=== PATIENT | female | born 1980 | race Caucasian/White ===

== ENCOUNTER 2017-01-01 12:00 | Observation (INO) | payer OTHER ==
[~2017-01-01] VITALS: Ht 165.1 cm; Wt 90.7 kg
--- NOTE | ~2017-01-01 | H ---
[facility] [address] HISTORY AND PHYSICAL Name: ROSEANNE LY [id number] Admission: 01/01/17 Attend Phys: Alexey Montgomery MD Discharge: Date of : 80 Report #: [id number] THIS REPORT FOR: //name// CC: Gunner Can [facility] physician/PCP DATE OF SERVICE: 01/01/2017 DATE OF SERVICE: 01/01/2017 REASON FOR PRESENTATION: Shortness of breath. HISTORY OF PRESENT ILLNESS: The patient is a 36-year-old who had been having some upper respiratory tract symptoms, fever, night sweats, cough over the last few days. The temperature was documented to be around 103. She visited with an Urgent Care place where she had some tachycardia and low blood pressure and was advised to come to the emergency room. No previous similar episodes. She is not known to have any previous medical problems. On presentation to the emergency room, she was found to have left-sided pneumonitis and was admitted for further evaluation and management. PAST MEDICAL HISTORY: None. SURGICAL HISTORY: Surgery for a broken arm. SOCIAL HISTORY: No drug or alcohol abuse. Nonsmoker. She works from home. FAMILY HISTORY: Hypertension. MEDICATIONS: None. REVIEW OF SYSTEMS: GENERAL: Significant for fever. CARDIOVASCULAR: No chest pain. PULMONARY: Significant for cough, shortness of breath. GASTROINTESTINAL: No nausea or vomiting. GENITOURINARY: No frequency or urgency. MUSCULOSKELETAL: Occasional myalgias. SKIN: No rash or ulcerations. NEUROLOGICAL: Significant for dizziness. No syncope. LABORATORY VALUES: Reviewed. PHYSICAL EXAMINATION: VITAL SIGNS: Temperature 36.8, blood pressure 133/98. Pulse rate was slightly [facility] [address] [place] [address] HISTORY AND PHYSICAL Name: ROSEANNE LY [facility] [id number] Admission: 01/01/17 Attend Phys: Alexey Montgomery MD Discharge: Date of : 80 Report #: [id number] elevated at 111. HEAD AND NECK: No jugular venous distention, no bruit, no thyromegaly. CHEST: Decreased air entry on the left side. CARDIOVASCULAR: Tachycardic with no rub detected. ABDOMEN: Soft, nontender. LOWER EXTREMITIES: No edema. LABORATORY VALUES: Reviewed, essentially unremarkable. RADIOLOGIC IMAGING: Chest x-ray reviewed, left-sided pneumonia. ASSESSMENT, IMPRESSION, PLAN: 1. Community-acquired pneumonia. 2. Leukocytosis due to the above. 3. Admission. 4. IV fluids. 5. Cultures obtained. 6. Appropriate antibiotic. 7. Observe vital signs. 8. Routine Tylenol care for her fever. 7. GI prophylaxis. 8. She is a very low risk for deep venous thrombosis and a pulmonary embolism and we will not initiate any of those treatment other than mobilizations. <ELECTRONICALLY SIGNED> By: Gunner Can MD 01/02/17 1141 [id number] Gunner Can MD /tamanna
[2017-01-01 12:11] VITALS: BP 133/98
[2017-01-01 14:39] LABS: HEMATOCRIT 39.8 % (37.0-47.0); HEMOGLOBIN 14.2 gm/dL (12.0-15.0); MCH 31.9 pg (26.0-34.0); MCHC 35.7 g/dL (28.0-37.0); MCV 89.4 fL (80.0-100.0); PLATELET COUNT 129 thou/uL (150-400); RBC 4.45 mil/uL (4.20-5.00); RDW 12.1 % (10.5-14.5); WBC 6.1 thou/uL (4.0-11.0)
[2017-01-01 14:40] LABS: MANUAL DIFF YES
[2017-01-01 14:53] LABS: ANION GAP 8 mmol/L (7-16); BUN 6 mg/dL (7-18); CALCIUM 8.6 mg/dL (8.5-10.1); CHLORIDE 102 mmol/L (98-107); CO2 27 mmol/L (21-32); CREATININE 0.8 mg/dL (0.6-1.0); GLUCOSE 101 mg/dL (74-106); POTASSIUM 3.6 mmol/L (3.5-5.1); SODIUM 137 mmol/L (136-145)
[2017-01-01 14:59] LABS: ALKALINE PHOSPHATASE 48 U/L (46-116); DIRECT BILIRUBIN < 0.1 mg/dL (<0.1-0.3); SGOT 29 U/L (15-37); SGPT 32 U/L (30-65); TOTAL BILIRUBIN 0.4 mg/dL (<0.1-1.0); TOTAL PROTEIN 7.3 g/dL (6.4-8.2)
[2017-01-01 15:01] LABS: TOTAL CELL COUNT 100
[2017-01-01 15:51] LABS: URINE BILIRUBIN NEGATIVE (Negative); URINE BLOOD 3+ (Negative); URINE COLOR YELLOW; URINE GLUCOSE-RANDOM* NEGATIVE (Negative); URINE KETONES NEGATIVE (Negative); URINE NITRITE NEGATIVE (Negative); URINE PROTEIN (DIPSTICK) NEGATIVE (Negative); URINE SPECIFIC GRAVITY <= 1.005 (1.003-1.035); URINE UROBILINOGEN 0.2 E.U./dl (0.2-1.0)
[2017-01-01 15:57] VITALS: BP 139/95
[2017-01-01 16:01] LABS: BACTERIA 1-9 Few /HPF (None Seen); CASTS None Seen /LPF (None Seen); CRYSTALS None Seen /LPF (None Seen); SQUAMOUS 0-3 Few /LPF (0-3); URINE RBC >20 Many /HPF (0-2); URINE WBC 0-5 Rare /HPF (0-5)
[2017-01-01 17:14] VITALS: BP 127/86
[2017-01-01 20:00] VITALS: BP 119/72
[2017-01-02 04:30] VITALS: BP 107/62
[2017-01-02 05:08] LABS: HEMATOCRIT 35.1 % (37.0-47.0); HEMOGLOBIN 12.4 gm/dL (12.0-15.0); MCH 31.8 pg (26.0-34.0); MCHC 35.2 g/dL (28.0-37.0); MCV 90.2 fL (80.0-100.0); RBC 3.89 mil/uL (4.20-5.00); RDW 12.1 % (10.5-14.5)
[2017-01-02 05:21] LABS: ALBUMIN 2.5 g/dL (3.4-5.0); CALCIUM 8.1 mg/dL (8.5-10.1); CREATININE 0.6 mg/dL (0.6-1.0); POTASSIUM 3.8 mmol/L (3.5-5.1); TOTAL BILIRUBIN 0.4 mg/dL (<0.1-1.0); TOTAL PROTEIN 6.2 g/dL (6.4-8.2)
[2017-01-02 08:41] VITALS: BP 112/68
[2017-01-02] MEDS ORDERED: LEVAQUIN 750 M750 MG PO (10:23)
[2017-01-02 12:51] VITALS: BP 112/68
== END 2017-01-02 13:30 | disposition home or self-care (01) ==
LOC: ER 12:00 → EROBS 15:14 → 4E 15:14
PROVIDERS: Hospitalist; Nurse Practitioner
DX: J18.9 Pneumonia, unspecified organism (principal); D72.829 Elevated white blood cell count, unspecified; I82.409 Acute embolism and thrombosis of unspecified deep veins of unspecified lower extremity; I26.99 Other pulmonary embolism without acute cor pulmonale; I10 Essential (primary) hypertension